=== PATIENT | female | born 1990 ===

== ENCOUNTER 2021-03-14 13:47 | Emergency (ER) | payer SELFPAY ==
[2021-03-14] MEDS ORDERED: Sodium Chloride 0.9% 1,000 ML IV ONE (14:23)
[2021-03-14] MEDS ORDERED: Sodium Chloride 0.9% 10 ML Syringe FLUSH PRN (14:23)
== END 2021-03-14 15:30 ==
LOC: DL.ED 13:47
DX: S31.41XA Laceration without foreign body of vagina and vulva, initial encounter (principal); W26.8XXA Contact with other sharp object(s), not elsewhere classified, initial encounter
CPT/HCPCS: 36415; 84703; 85025; 99284; J7030